=== PATIENT | male | born 1970 | race Caucasian/White ===

== ENCOUNTER → 2016-08-27 | Outpatient (CLI) | payer OTHER ==
[~2016-08-27] MED LIST: ASPI81TA21 PO; ATOR10TA88 PO; CHOL20007 PO; GLIP5TAB11 PO; LISI-729 PO; LPR100 PO; METF-384 PO; METO50TA7 PO; NORT50CA PO; NRN800 PO; PANT40TA PO; RANO500T PO; SIMV10TA5 PO; SULI200T PO; gabapentin PO; metanx; vitamin d PO
[2016-08-27 10:08] LABS: BASO % 0.4 %; BASO ABS # 0.02 K/uL (0-0.2); COMPLETE YES; EOS % 4.1 %; LYMPH % 28.3 %; LYMPH ABS # 1.44 K/uL (1.2-3.4); MEAN CELL VOLUME 89.2 fL (80-100); MEAN CORPUSCULAR HEMOGLOBIN 32.7 pg (25-34); MEAN CORPUSCULAR HGB CONC 36.7 g/dl (32-36); MEAN PLATELET VOLUME 10.8 fL (7.4-10.4); MONO % 7.3 %; NEUT % 59.9 %; PLATELET COUNT 142 K/uL (130-400); RED BLOOD COUNT 4.71 M/uL (4.7-6.1); WHITE BLOOD COUNT 5.08 K/uL (4.8-10.8)
[2016-08-27 10:26] LABS: ESTIMATED AVERAGE GLUCOSE 154 mg/dl; HA1C FLAG Normal (Normal)
[2016-08-27 10:40] LABS: ALT/SGPT 34 U/L (12-78); BLOOD UREA NITROGEN 18 mg/dl (7-18); CALCIUM 9.2 mg/dl (8.5-10.1); CARBON DIOXIDE 27 mmol/L (21-32); CHLORIDE 102 mmol/L (98-107); GLUCOSE 181 mg/dl (70-99); POTASSIUM 4.2 mmol/L (3.5-5.1); SODIUM 138 mmol/L (136-145)
[2016-08-27 10:49] LABS: ALB/GLOB RATIO 1.4 (0.9-2); ALKALINE PHOSPHATASE 70 U/L (45-117); AST/SGOT 19 U/L (15-37); CHOLESTEROL 143 mg/dl (0-200); CHOLESTEROL/HDL RATIO 4.1; HDL CHOLESTEROL 35 mg/dl; LDL CHOLESTEROL CALCULATED 76 mg/dl; THYROID STIMULATING HORMONE 0.792 uIu/ml (0.300-4.500); TRIGLYCERIDES 162 mg/dl (0-150); VERY LOW DENSITY LIPOPROT CALC 32 mg/dl
== END | disposition home or self-care (01) ==
LOC: C.LAB1850 09:12
PROVIDERS: ATTEND Family Medicine
DX: E11.9 Type 2 diabetes mellitus without complications (principal); R53.83 Other fatigue

== ENCOUNTER → 2016-12-08 | Outpatient (CLI) | payer OTHER ==
--- NOTE | 2016-12-08 11:07 | DIAGNOSTIC IMAGING REPORT ---
L-SPINE FLEX/EXT BENDING MIN 6 CLINICAL HISTORY: LUMBAGO pain COMPARISON STUDY: None FINDINGS: Grade 1 anterolisthesis of L4 on L5. This appears to be secondary to degenerative changes of posterior elements. Maximum anterolisthesis 6 mm. This shows no change in appearance on a positional basis. Vertebral bodies as well as remaining intervertebral this are unremarkable. IMPRESSION: 1. Grade 1 anterolisthesis L4 on L5. 2. This is stable in terms of degree of subluxation on a positional basis. 3. 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 Electronically signed by: Nathen Atkinson M.D. 12/08/2016 11:06 AM Dictated Date/Time: 12/08/2016 11:04 AM
== END | disposition home or self-care (01) ==
LOC: C.RADBC 09:45
PROVIDERS: ATTEND Physician Assistant
DX: M54.5 Low back pain (principal); M53.86 Other specified dorsopathies, lumbar region